=== PATIENT | female | born 2000 | race Hispanic/Latino ===

== ENCOUNTER 2023-12-07 23:27 | Inpatient (IN) | payer OTHER ==
[2023-12-07 23:42] VITALS: BMI 28.7
[2023-12-08] MEDS ORDERED: Acetaminophen 500 MG TAB PO PRN (00:17)
[2023-12-08] MEDS ORDERED: Misoprostol 200 MCG TAB PR PRN (00:17)
[2023-12-08] MEDS ORDERED: Promethazine HCl 25 MG/ML VIAL IM PRN (00:17)
[2023-12-08] MEDS ORDERED: Carboprost 250 MCG/ML AMP IM PRN (00:17)
[2023-12-08] MEDS ORDERED: Ondansetron PF 4 MG/2 ML Vial IVP PRN ×2 (00:17→03:30)
[2023-12-08] MEDS ORDERED: Tranexamic Acid 1,000 MG/10 ML VIAL IVP PRN (00:17)
[2023-12-08] MEDS ORDERED: hydrALAZINE 20 MG/ML VIAL SLOW IVP PRN ×2 (00:17→03:31)
[2023-12-08] MEDS ORDERED: Lidocaine 1% (PF) 30 ML VIAL SC PRN (00:17)
[2023-12-08] MEDS ORDERED: Diphenoxylate HCl/Atropine Tablet PO PRN (00:17)
[2023-12-08] MEDS ORDERED: Oxytocin 30 units/NS 500 ML 500 ML IV SCH ×2 (00:30)
[2023-12-08 00:56] LABS: Hematocrit 32.9 % (34.9-44.5); Hemoglobin 11.1 g/dL (12.0-15.5); Mean Corpuscular HGB CONC 33.7 g/dL (32.0-36.0); Mean Corpuscular Hemoglobin 30.5 pg (27.0-33.0); Mean Corpuscular Volume 90.4 fL (81.6-98.3); Mean Platelet Volume 10.8 fL (7.4-10.4); Platelet Count 199 10x3/uL (150-450); RBC Distribution Width 12.3 % (11.5-14.5); Red Blood Cell (RBC) Count 3.64 10x6/uL (3.90-5.03); White Blood Cell (WBC) Count 12.2 10x3/uL (3.5-10.5)
[2023-12-08] MEDS: Oxytocin 30 units/NS 500 ML 500 ML IV SCH (03:19)
[2023-12-08] MEDS: Ibuprofen 800 MG TAB PO PRN (03:22)
[2023-12-08] MEDS ORDERED: Oxytocin 30 units/NS 500 ML 1,000 ML IV SCH (03:30)
[2023-12-08] MEDS ORDERED: Milk Of Magnesia 30 ML UDCUP PO PRN (03:30)
[2023-12-08] MEDS ORDERED: HYDROcodone/Acetaminophen 5/325 mg Tablet PO PRN ×2 (03:30)
[2023-12-08] MEDS ORDERED: Boostrix 0.5 ML (Tdap) VIAL (>/=7 yrs of age) IM SCH (03:30)
[2023-12-08] MEDS ORDERED: Bisacodyl 10 MG SUPP PR PRN (03:30)
[2023-12-08] MEDS: Methylergonovine 0.2 MG/ML VIAL IM PRN (03:36)
[2023-12-08 03:49] LABS: HBsAg Index 0.23 S/CO (0-0.99); Hep B Surf Ag - L&D Non-Reactive S/CO (NonReactive); Syphilis Antibody Nonreactive (Nonreactive); Syphilis Antibody Index 0.08 S/CO (<1.00 Non-Reactive)
[2023-12-08] MEDS: Oxytocin 30 units/NS 500 ML 500 ML ONE (05:15)
[2023-12-08] MEDS: Misoprostol 100 MCG TAB VAG SCH (05:15)
[2023-12-08] MEDS: Lactated Ringer's 1,000 ML IV SCH (05:15)
[2023-12-08] MEDS: Lidocaine 1% (PF) 30 ML VIAL ONE (05:16)
[2023-12-08] MEDS: Ibuprofen 800 MG TAB ONE (05:16)
[2023-12-08] MEDS: Ferrous Sulfate 325 MG TAB PO SCH (07:41)
[2023-12-08] MEDS: Docusate 100 MG CAP PO SCH (08:44)
[2023-12-08] MEDS: Ibuprofen 800 MG TAB PO SCH ×2 (13:32→20:42)
[2023-12-08] MEDS ORDERED: Ibuprofen 800 MG TAB PO SCH (14:00)
[2023-12-09 08:13] VITALS: BP 91/54; TEMP 97.9
== END 2023-12-09 16:35 | disposition home or self-care (01) | DRG 807 ==
LOC: CSHLD/OP 23:27 → CSHLD 12-08 → CSHPP 12-08 04:15
PROVIDERS: ADMIT Family Medicine; ATTEND Family Medicine
PROC: 10E0XZZ Delivery of Products of Conception, External Approach (ICD-10-PCS; principal; 2023-12-08)
PROC: 0KQM0ZZ Repair Perineum Muscle, Open Approach (ICD-10-PCS; 2023-12-08)
DX: O70.1 Second degree perineal laceration during delivery (principal); Z37.0 Single live birth; Z3A.39 39 weeks gestation of pregnancy
CPT/HCPCS: 85027; 86780; 86850; 86900; 86901; 87340; 99285; J2210; J2590